=== PATIENT | male | born 1965 | race Caucasian/White ===

== ENCOUNTER → 2018-07-29 | Outpatient (RCR) | payer OTHER ==
--- NOTE | 2018-07-07 08:46 | NUR ---
ST recommends therapy 1 x weekly for the next 4 weeks for cognitive communication deficit. ST will evaluate dysphagia during the next session. Addendum: 07/07/18 at 0906 by NATALIE SIMMS Amended: Links added.
== END ==
LOC: M OT 07-06 12:30 → M ST 07-12 14:04 → M OT 07-13 13:00 → M PT 07-20 07:49 → M OT 07-26 08:47
PROVIDERS: ATTEND Nurse Practitioner
DX: S06.9X0D Unspecified intracranial injury without loss of consciousness, subsequent encounter (principal); X58.XXXD Exposure to other specified factors, subsequent encounter
CPT/HCPCS: 96125; 97010; 97110; 97112; 97140; 97162; 97166; G0515

== ENCOUNTER 2018-08-24 12:54 | Outpatient (RCR) | payer OTHER | END 2018-08-28 | LOC: M ST 12:54 | PROVIDERS: ATTEND Nurse Practitioner | DX: S06.9X0D Unspecified intracranial injury without loss of consciousness, subsequent encounter (principal); X58.XXXD Exposure to other specified factors, subsequent encounter | CPT/HCPCS: 97010; 97110; 97112; G0515 ==